=== PATIENT | female | born 2000 | race Caucasian/White ===

== ENCOUNTER 2019-07-21 18:57 | Emergency (ER) | payer BC ==
[2019-07-21 21:15] LABS: ABS Basophils 0.1 10^3/ul (0-0.2); ABS Lymphocytes 1.6 10^3/ul (1.0-4.8); ABS Neutrophils 15.1 10^3/ul (1.5-7.7); Eosinophil % 0.3 %; Hematocrit 35 % (35-47); Hemoglobin 11.9 g/dL (12.0-16.0); Lymphocyte % 8.8 %; Mean Corpuscular HGB Conc 34 g/dL (31-36); Mean Corpuscular Hemoglobin 28 pg (27-31); Mean Corpuscular Volume 83 fL (80-97); Mean Platelet Volume 8.4 fL (7.4-10.4); Platelet Count 339 10^3/uL (150-450); Red Blood Count 4.23 10^6 /uL (3.70-4.87); Red Cell Distribution Width 15 % (10-15); White Blood Count 17.7 10^3/uL (3.5-10.8)
[2019-07-21 21:31] LABS: Activated Partial Thrombo Time 34.9 seconds (26.0-38.0); INR 0.92 (0.82-1.09)
[2019-07-21 21:33] LABS: Albumin 4.4 g/dL (3.2-5.2); Albumin/Globulin Ratio 1.6 (1-3); BUN/Creatinine Ratio 10.2 (8-20); Calcium 9.8 mg/dL (8.6-10.3); EGFR African American 100.2 (>60); EGFR Non-African American 82.8 (>60); Globulin 2.8 g/dL (2-4); Potassium 3.9 mmol/L (3.5-5.0); Total Bilirubin 0.5 mg/dL (0.2-1.0); Total Protein 7.2 g/dL (6.4-8.9)
[2019-07-21] MEDS ORDERED: oxyCODONE/Acetamin 5/325 MG* TAB PO ONE (21:52)
--- NOTE | 2019-07-21 22:33 | ED ---
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 The patient describes the pain as a constant intense pressure of 9/10 severity. She reports a mass in her uterine lining (diagnosed through imaging), for which she has an appointment with [facility] on 08/08/19. Advil does not alleviate pain. 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 - History of Current Complaint Chief Complaint: EDVaginalBleeding Time Seen by Provider: 07/21/19 21:44 Stated Complaint: ABD PAIN PER EMS Hx Obtained From: Patient Onset/Duration: Started Weeks Ago, Worse Since - Several hours ago. Timing: Constant, Lasting Hours Severity: Severe Current Severity: Severe Pain Intensity: 9 Location of Pain: Suprapubic Additional Location for Females: Uterus Pain Characteristics: Pressure Additional Signs & Symptoms: Positive: Vaginal Bleeding Alleviating Factor(s): Nothing - Allergy/Home Medications Allergies/Adverse Reactions: Allergies Allergy/AdvReac Type Severity Reaction Status Date / Time No Known Allergies Allergy Verified 07/21/19 19:09 Home Medications: Home Medications Levothyroxine Sodium [Synthroid] 112 mcg PO DAILY 07/21/19 [History Confirmed ] Metformin HCl 500 mg PO DAILY 07/21/19 [History Confirmed 07/21/19] Spironolactone 1 tab PO BID 07/21/19 [History Confirmed 07/21/19] PMH/Surg Hx/FS Hx/Imm Hx Previously Healthy: Yes Endocrine/Hematology History: Reports: Hx Diabetes Sensory History: Reports: Hx Contacts or Glasses Opthamlomology History: Reports: Hx Contacts or Glasses - Surgical History Surgical History: None Surgery Procedure, Year, and Place: none Infectious Disease History: No Infectious Disease History: Denies: Traveled Outside the [place] in Last 30 Days - Family History Known Family History: Negative: Hypertension - Social History Alcohol Use: Rare Hx Substance Use: No Substance Use Type: Reports: None Hx Tobacco Use: No Smoking Status (MU): Never Smoked Tobacco Review of Systems Negative: Fever Positive: Abdominal Pain - suprapubic Positive: pain, other - vaginal bleeding All Other Systems Reviewed And Are Negative: Yes Physical Exam - Summary Physical Exam Summary: Appearance: Well-appearing, Well-nourished, lying in bed comfortably Skin: Warm, dry, no obvious rash Eyes: sclera anicteric, no conjunctival pallor ENT: mucous membranes moist, pharynx appears normal Neck: Supple, nontender Respiratory: Clear to auscultation, no signs of respiratory distress Cardiovascular: Normal S1, S2. No murmurs. Normal distal pulses in tibial and radial bilaterally. Abdomen: Soft, nontender, normal active bowel sounds present Musculoskeletal: Normal, Strength/ROM Intact Neurological: A&Ox3, awake and alert, mentation is normal, speech is fluent and appropriate Psychiatric: affect is normal, does not appear anxious or depressed Triage Information Reviewed: Yes Vital Signs On Initial Exam: Initial Vitals Temp Pulse Resp BP Pulse Ox 98.7 F 93 18 134/84 99 07/21/19 19:06 07/21/19 19:06 07/21/19 19:06 07/21/19 19:06 07/21/19 19:06 Vital Signs Reviewed: Yes Diagnostics - Vital Signs Vital Signs Temp Pulse Resp BP Pulse Ox 07/21/19 22:14 18 07/21/19 20:58 98.9 F 97 15 129/79 98 07/21/19 19:06 98.7 F 93 18 134/84 99 - Laboratory Lab Results: Lab Results 07/21/19 07/21/19 07/21/19 Range/Units 21:05 21:05 21:05 WBC 17.7 H (3.5-10.8) 10^3/uL RBC 4.23 (3.70-4.87) 10^6 /uL Hgb 11.9 L (12.0-16.0) g/dL Hct 35 (35-47) % MCV 83 (80-97) fL MCH 28 (27-31) pg MCHC 34 (31-36) g/dL RDW 15 (10-15) % Plt Count 339 (150-450) 10^3/uL MPV 8.4 (7.4-10.4) fL Neut % (Auto) 85.1 % Lymph % (Auto) 8.8 % [place] % (Auto) 5.5 % Eos % (Auto) 0.3 % Baso % (Auto) 0.3 % Absolute Neuts (auto) 15.1 H (1.5-7.7) 10^3/ul Absolute Lymphs (auto) 1.6 (1.0-4.8) 10^3/ul Absolute Monos (auto) 1.0 H (0-0.8) 10^3/ul Absolute Eos (auto) 0.0 (0-0.6) 10^3/ul Absolute Basos (auto) 0.1 (0-0.2) 10^3/ul Absolute Nucleated RBC 0.0 10^3/ul Nucleated RBC % 0.0 INR (Anticoag Therapy) 0.92 (0.82-1.09) APTT 34.9 (26.0-38.0) seconds Sodium 138 (135-145) mmol/L Potassium 3.9 (3.5-5.0) mmol/L Chloride 106 (101-111) mmol/L Carbon Dioxide 26 (22-32) mmol/L Anion Gap 6 (2-11) mmol/L BUN 9 (6-24) mg/dL Creatinine 0.88 (0.51-0.95) mg/dL Est GFR ( Amer) 100.2 (>60) Est GFR (Non-Af Amer) 82.8 (>60) BUN/Creatinine Ratio 10.2 (8-20) Glucose 104 H (70-100) mg/dL Calcium 9.8 (8.6-10.3) mg/dL Total Bilirubin 0.50 (0.2-1.0) mg/dL AST 19 (13-39) U/L ALT 13 (7-52) U/L Alkaline Phosphatase 85 (34-104) U/L Total Protein 7.2 (6.4-8.9) g/dL Albumin 4.4 (3.2-5.2) g/dL Globulin 2.8 (2-4) g/dL Albumin/Globulin Ratio 1.6 (1-3) Blood Type Antibody Screen 07/21/19 Range/Units 21:05 WBC (3.5-10.8) 10^3/uL RBC (3.70-4.87) 10^6 /uL Hgb (12.0-16.0) g/dL Hct (35-47) % MCV (80-97) fL MCH (27-31) pg MCHC (31-36) g/dL RDW (10-15) % Plt Count (150-450) 10^3/uL MPV (7.4-10.4) fL Neut % (Auto) % Lymph % (Auto) % [place] % (Auto) % Eos % (Auto) % Baso % (Auto) % Absolute Neuts (auto) (1.5-7.7) 10^3/ul Absolute Lymphs (auto) (1.0-4.8) 10^3/ul Absolute Monos (auto) (0-0.8) 10^3/ul Absolute Eos (auto) (0-0.6) 10^3/ul Absolute Basos (auto) (0-0.2) 10^3/ul Absolute Nucleated RBC 10^3/ul Nucleated RBC % INR (Anticoag Therapy) (0.82-1.09) APTT (26.0-38.0) seconds Sodium (135-145) mmol/L Potassium (3.5-5.0) mmol/L Chloride (101-111) mmol/L Carbon Dioxide (22-32) mmol/L Anion Gap (2-11) mmol/L BUN (6-24) mg/dL Creatinine (0.51-0.95) mg/dL Est GFR ( Amer) (>60) Est GFR (Non-Af Amer) (>60) BUN/Creatinine Ratio (8-20) Glucose (70-100) mg/dL Calcium (8.6-10.3) mg/dL Total Bilirubin (0.2-1.0) mg/dL AST (13-39) U/L ALT (7-52) U/L Alkaline Phosphatase (34-104) U/L Total Protein (6.4-8.9) g/dL Albumin (3.2-5.2) g/dL Globulin (2-4) g/dL Albumin/Globulin Ratio (1-3) Blood Type O Positive Antibody Screen Negative Result Diagrams: 07/21/19 21:05 07/21/19 21:05 Lab Statement: Any lab studies that have been ordered have been reviewed, and results considered in the medical decision making process. GIGU Course/Dx - Course Course Of Treatment: 18 year old F presenting to [facility] with a chief complaint of vaginal bleeding and suprapubic pain worsening over the last 4 months with diagnosed mass in the uterine lining and consultation for surgery at [facility] on 08/08/19. Physical exam is normal. Laboratory results show a WBC of 17.7 H, Hgb of 11.9 L, Absolute Neuts 15.1, and Glucose 104. She is given Percocet in the ED for pain management. I talked to Dr. Ramon, [facility], who advised to treat symptomatically and he will try to schedule an earlier appointment with the patient. She understands and agrees with follow up with OB/ [facility]. I diagnose this patient with pelvic pain and menorrhagia. - Diagnoses Provider Diagnoses: Pelvic pain, Menorrhagia - Physician Notifications Discussed Care Of Patient With: Jerry Ramon - Car Supervisor Time Discussed With Above Provider: 21:50 Instructed by Provider To: Other - Talked to Dr. Yenny MD, who advised to treat symptomatically and he will try to schedule an earlier appointment with the patient. Discharge ED - Sign-Out/Discharge Documenting (check all that apply): Patient Departure - Discharge home Patient Received Moderate/Deep Sedation with Procedure: No - Discharge Plan Condition: Good Disposition: HOME Prescriptions: oxyCODONE/Acetamin 5/325 MG* [Percocet 5/325 TAB*] 2 tab PO Q4H PRN #12 tab MDD 4 PRN Reason: Pain - Severe Patient Education Materials: Pelvic Pain in Women (ED), Menorrhagia (ED) Referrals: Montse Neal MD [Medical Doctor] - Additional Instructions: Contact the [facility] office on Tuesday to see if they can see you sooner for this problem. - Billing Disposition and Condition Condition: GOOD Disposition: Home - Attestation Statements Document Initiated by Cristina: Yes Documenting Scribe: Bg Mejia Provider For Whom Cristina is Documenting (Include Credential): Sarath Dinero MD. Scribe Attestation: Bg Ca, scribed for Sarath Dinero MD. on 07/23/19 at 0457. Scribe Documentation Reviewed: Yes Provider Attestation: The documentation as recorded by the Bg forrester accurately reflects the service I personally performed and the decisions made by me, Sarath Dinero MD. Status of Scribe Document: Viewed
[2019-07-22 00:11] VITALS: BP 138/73
== END 2019-07-22 00:12 | disposition home or self-care (01) ==
LOC: ED 18:57
DX: N92.0 Excessive and frequent menstruation with regular cycle (principal); R10.2 Pelvic and perineal pain; E11.9 Type 2 diabetes mellitus without complications; Z79.84 Long term (current) use of oral hypoglycemic drugs; Z79.899 Other long term (current) drug therapy
CPT/HCPCS: 36415; 80053; 85025; 85610; 85730; 86850; 86900; 86901; 99283; A9270-GY